=== PATIENT | female | born 1955 | race Asian ===

== ENCOUNTER 2016-07-23 07:54 | Outpatient (CLI) | payer OTHER | END 2016-07-23 23:36 | disposition home or self-care (01) | LOC: CT 07:54 → EDBD 07:54 → CT 08:30 | DX: R10.84 Generalized abdominal pain (principal); R10.2 Pelvic and perineal pain; R11.0 Nausea | CPT/HCPCS: 36416; 82565; 84520 ==

== ENCOUNTER 2016-08-13 14:18 | Outpatient (CLI) | payer OTHER ==
[2016-08-13 14:56] LABS: PLATELET COUNT 211 K/uL (152-353)
[2016-08-13 15:30] LABS: POTASSIUM 4.1 mmol/L (3.6-5.2); SODIUM 135 mmol/L (136-145)
== END 2016-08-13 19:32 | disposition home or self-care (01) ==
LOC: EDBD 14:18 → LAB 14:18
PROVIDERS: Nurse Practitioner Family
DX: E11.9 Type 2 diabetes mellitus without complications (principal); R30.0 Dysuria; K21.9 Gastro-esophageal reflux disease without esophagitis; Z41.8 Encounter for other procedures for purposes other than remedying health state; E55.9 Vitamin D deficiency, unspecified; F32.89 Other specified depressive episodes; I10 Essential (primary) hypertension
CPT/HCPCS: 80053; 80061; 84443; 85027; 86318

== ENCOUNTER 2016-08-23 08:51 | Outpatient (CLI) | payer OTHER | END 2016-08-23 21:37 | disposition home or self-care (01) | LOC: MAMMO 08:51 | DX: Z12.31 Encounter for screening mammogram for malignant neoplasm of breast (principal) | CPT/HCPCS: G0202-TC ==

== ENCOUNTER 2016-12-30 13:21 | Outpatient (CLI) | payer OTHER ==
[2016-12-30 13:42] LABS: PLATELET COUNT 214 K/uL (152-353)
[2016-12-30 14:48] LABS: POTASSIUM 4.2 mmol/L (3.6-5.2); SODIUM 142 mmol/L (136-145)
== END 2016-12-30 14:30 | disposition home or self-care (01) ==
LOC: EDBD 13:21 → LAB 13:21
PROVIDERS: Nurse Practitioner Family
DX: E11.9 Type 2 diabetes mellitus without complications (principal); I10 Essential (primary) hypertension; E55.9 Vitamin D deficiency, unspecified; E53.8 Deficiency of other specified B group vitamins; E78.4 Other hyperlipidemia
CPT/HCPCS: 80053; 80061; 82306; 82607; 83036; 84436; 84443; 85027

== ENCOUNTER 2017-04-17 08:15 | Outpatient (CLI) | payer OTHER | END 2017-04-17 19:06 | disposition home or self-care (01) | LOC: RAD 08:15 | DX: R06.02 Shortness of breath (principal) ==

== ENCOUNTER 2017-08-04 11:08 | Outpatient (CLI) | payer OTHER ==
[2017-08-04 11:42] LABS: PLATELET COUNT 214 K/uL (152-353)
[2017-08-04 12:46] LABS: POTASSIUM 3.6 mmol/L (3.6-5.2)
== END 2017-08-04 19:20 | disposition home or self-care (01) ==
LOC: LABW 11:08
PROVIDERS: Nurse Practitioner Family
DX: E11.9 Type 2 diabetes mellitus without complications (principal); K21.9 Gastro-esophageal reflux disease without esophagitis; E55.9 Vitamin D deficiency, unspecified; F32.89 Other specified depressive episodes; E78.4 Other hyperlipidemia; E53.8 Deficiency of other specified B group vitamins; Z79.899 Other long term (current) drug therapy; Z51.81 Encounter for therapeutic drug level monitoring; J44.9 Chronic obstructive pulmonary disease, unspecified; I10 Essential (primary) hypertension
CPT/HCPCS: 36415; 80053; 80061; 82306; 82607; 83036; 84436; 84443; 85027

== ENCOUNTER 2017-08-29 10:02 | Outpatient (CLI) | payer OTHER | END 2017-08-29 19:04 | disposition home or self-care (01) | LOC: MAMMO 10:02 | DX: Z12.31 Encounter for screening mammogram for malignant neoplasm of breast (principal) ==